=== PATIENT | male | born 1980 | race Caucasian/White ===

== ENCOUNTER 2016-12-24 15:10 | Inpatient (IN) | payer MEDICAID, OTHER ==
[~2016-12-24] VITALS: Ht 185.4 cm; Wt 89.0 kg
[2016-12-24] MEDS ORDERED: SODIUM CHLORIDE 0.9% 1,000 ML IV ONE ×2 (15:28→16:58)
[2016-12-24] MEDS ORDERED: SODIUM CHLORIDE 0.9% 1,000ML IVBOLUS ONE (15:30)
[2016-12-24] MEDS ORDERED: SODIUM CHLORIDE FLUSH 10ML SYR IVF ONE (15:30)
[2016-12-24 15:57] LABS: RAPID INFLUENZA A Negative (Negative); RAPID INFLUENZA B Negative (Negative)
[2016-12-24 16:00] LABS: HEMATOCRIT 40.3 % (39.2-51.8); HEMOGLOBIN 13.6 g/dL (13.7-18.0); WHITE BLOOD COUNT 28.6 x10^3/uL (3.4-10)
[2016-12-24 16:09] LABS: ASPARTATE AMINO TRANSFERASE 9 U/L (15-37); BLOOD UREA NITROGEN 15 mg/dL (7-18)
[2016-12-24 16:24] LABS: DIFF TOTAL CELLS COUNTED 100 CELL DIFF
[2016-12-24 16:27] LABS: VERIFY COUNTS? YES
[2016-12-24] MEDS ORDERED: CEFTRIAXONE PMX 1GM/50ML 50 ML ONE (16:28)
[2016-12-24] MEDS ORDERED: CEFTRIAXONE PMX 1GM/50ML 50 ML IVPB ONE (16:30)
[2016-12-24] MEDS ORDERED: AZITHROMYCIN 500 MG in SODIUM CHLORIDE 0.9% 250 ML IVPB ONE (16:30)
[2016-12-24] MEDS ORDERED: SODIUM CHLORIDE FLUSH 10ML SYR IVF PRN (17:00)
[2016-12-24] MEDS ORDERED: ONDANSETRON 2MG/ML, 2ML IVPush PRN (17:30)
[2016-12-24] MEDS ORDERED: ACETAMINOPHEN 325 MG TABLET PO PRN (17:30)
[2016-12-24] MEDS ORDERED: GUAIFENESIN/DM 200-20MG, 10ML UDC PO PRN (17:30)
[2016-12-24] MEDS ORDERED: ALBUTEROL/IPRATROPIUM 2.5MG/0.5MG, 3 ML NPPB PRN (18:30)
[2016-12-24] MEDS ORDERED: NICOTINE 21 MG/24 HR PATCH.TD24 TD ONE (18:30)
[2016-12-24] MEDS: ALBUTEROL/IPRATROPIUM 2.5MG/0.5MG, 3 ML HHN SCH (18:30)
[2016-12-24] MEDS ORDERED: ALBUTEROL/IPRATROPIUM 2.5MG/0.5MG, 3 ML ONE (19:20)
[2016-12-24] MEDS: LACTATED RINGERS 1,000 ML IV SCH (20:16)
[2016-12-24 20:19] VITALS: BP 103/67
[2016-12-24] MEDS: OXYcodone IR 5MG TABLET PO PRN (20:49)
[2016-12-24] MEDS: FAMOTIDINE 20 MG TABLET PO SCH (21:00)
[2016-12-24] MEDS: BUDESONIDE 0.5 MG/2 ML INHA INH SCH (21:00)
[2016-12-25] MEDS: ALBUTEROL/IPRATROPIUM 2.5MG/0.5MG, 3 ML HHN SCH ×5 (00:08→18:30)
[2016-12-25 03:18] VITALS: BP 108/55
[2016-12-25] MEDS: LACTATED RINGERS 1,000 ML IV SCH ×2 (04:50→12:15)
[2016-12-25 06:37] LABS: HEMATOCRIT 34.4 % (39.2-51.8); HEMOGLOBIN 11.6 g/dL (13.7-18.0); WHITE BLOOD COUNT 18.5 x10^3/uL (3.4-10)
[2016-12-25 06:43] LABS: BLOOD UREA NITROGEN 11 mg/dL (7-18)
[2016-12-25 06:59] LABS: DIFF TOTAL CELLS COUNTED 100 CELL DIFF
[2016-12-25 07:00] LABS: VERIFY COUNTS? YES
[2016-12-25] MEDS: FAMOTIDINE 20 MG TABLET PO SCH ×2 (07:35→20:35)
[2016-12-25] MEDS: OXYcodone IR 5MG TABLET PO PRN ×2 (07:36→20:42)
[2016-12-25] MEDS ORDERED: MAGNESIUM SULFATE PMX 2GM/50ML 50 ML IV ONE (09:00)
[2016-12-25] MEDS ORDERED: POTASSIUM CHLORIDE 20 MEQ TAB.ER.PRT PO ONE (09:00)
[2016-12-25] MEDS: ACETYLCYSTEINE 20%, 10ML INH SCH ×3 (09:00→20:24)
[2016-12-25] MEDS: BUDESONIDE 0.5 MG/2 ML INHA INH SCH ×2 (09:00)
[2016-12-25 09:02] VITALS: BP 91/65
[2016-12-25] MEDS: methylPREDNISolone SOD SUCC 125 MG/2 ML IVPush SCH ×2 (09:33→20:35)
[2016-12-25 13:44] VITALS: BP 100/61
[2016-12-25] MEDS: CEFTRIAXONE PMX 2GM/50ML 50 ML IV SCH (17:34)
[2016-12-25] MEDS: AZITHROMYCIN 500 MG in SODIUM CHLORIDE 0.9% 250 ML IV SCH (17:34)
[2016-12-25 19:25] VITALS: BP 102/68
[2016-12-26] MEDS: ALBUTEROL/IPRATROPIUM 2.5MG/0.5MG, 3 ML HHN SCH ×4 (00:30→18:30)
[2016-12-26] MEDS: LACTATED RINGERS 1,000 ML IV SCH ×3 (00:48→16:00)
[2016-12-26 02:39] VITALS: BP 104/66
[2016-12-26 07:03] LABS: BLOOD UREA NITROGEN 12 mg/dL (7-18)
[2016-12-26] MEDS: FAMOTIDINE 20 MG TABLET PO SCH ×3 (07:47→20:47)
[2016-12-26 08:07] VITALS: BP 99/63
[2016-12-26 14:00] VITALS: BP 106/64
[2016-12-26] MEDS: AZITHROMYCIN 500 MG in SODIUM CHLORIDE 0.9% 250 ML IV SCH (16:42)
[2016-12-26] MEDS: CEFTRIAXONE PMX 2GM/50ML 50 ML IV SCH (16:42)
[2016-12-26 18:55] VITALS: BP 102/65
[2016-12-26] MEDS: OXYcodone IR 5MG TABLET PO PRN (20:48)
[2016-12-27 00:28] VITALS: BP 121/75
[2016-12-27] MEDS: ALBUTEROL/IPRATROPIUM 2.5MG/0.5MG, 3 ML HHN SCH ×2 (00:30→09:15)
[2016-12-27 07:41] VITALS: BP 103/61
[2016-12-27] MEDS: FAMOTIDINE 20 MG TABLET PO SCH ×2 (09:00→20:54)
[2016-12-27] MEDS: LACTATED RINGERS 1,000 ML IV SCH ×3 (09:09→17:23)
[2016-12-27] MEDS: KETOROLAC 30 MG/1 ML IVPush SCH ×3 (11:06→22:30)
[2016-12-27 15:06] VITALS: BP 108/69
[2016-12-27] MEDS: CEFTRIAXONE PMX 2GM/50ML 50 ML IV SCH (17:22)
[2016-12-27] MEDS: AZITHROMYCIN 500 MG in SODIUM CHLORIDE 0.9% 250 ML IV SCH (17:22)
[2016-12-27 19:00] VITALS: BP 107/66
[2016-12-27] MEDS: OXYcodone IR 5MG TABLET PO PRN (21:00)
[2016-12-28] MEDS: LACTATED RINGERS 1,000 ML IV SCH ×2 (00:12→09:24)
[2016-12-28 01:43] VITALS: BP 113/64
[2016-12-28] MEDS: KETOROLAC 30 MG/1 ML IVPush SCH ×2 (04:24→10:30)
[2016-12-28 07:42] VITALS: BP 120/78
[2016-12-28] MEDS: FAMOTIDINE 20 MG TABLET PO SCH (09:22)
[2016-12-28] MEDS: OXYcodone IR 5MG TABLET PO PRN (09:23)
[2016-12-28 09:50] LABS: BLOOD UREA NITROGEN 18 mg/dL (7-18)
[2016-12-28 13:32] VITALS: BP 105/65
== END 2016-12-28 16:28 | disposition left against medical advice (07) | DRG 871 ==
LOC: ED 17:23 → 3NE 17:24 → ED 17:46
PROVIDERS: ADMIT Internal Medicine; ATTEND Internal Medicine
DX: A41.9 Sepsis, unspecified organism (principal); J18.0 Bronchopneumonia, unspecified organism; E86.0 Dehydration; Z53.21 Procedure and treatment not carried out due to patient leaving prior to being seen by health care provider; F12.90 Cannabis use, unspecified, uncomplicated; F17.200 Nicotine dependence, unspecified, uncomplicated; R65.20 Severe sepsis without septic shock; Z87.730 Personal history of (corrected) cleft lip and palate
CPT/HCPCS: 36415; 71010; 71020; 80048; 80053; 81001; 82550; 83605; 83735; 85025; 85610; 85730; 87040; 87400; 93005; 94640; 96361; 96365; 96366; 96368; J0456; J0696; J1885; J7620; J2930; J3475; J7030; J7050; J7120; J7512